=== PATIENT | female | born 1985 | race Hispanic/Latino ===

== ENCOUNTER 2018-01-23 21:01 | Emergency (ER) | payer MEDICAID ==
[2018-01-23 21:10] VITALS: RESP 16; O2SAT 98
--- NOTE | 2018-01-23 21:43 | ED PDOC ---
HPI: Seizure Time Seen by Provider: 01/23/18 21:11 Chief Complaint (Nursing): Seizure Chief Complaint (Provider): Seizure History Per: Family History/Exam Limitations: clinical condition Recent Seizure Activity Began: Just Before Arrival Length Of Seizures (Duration): Minutes (2-3) Quality Of Seizure: Generalized Associated Symptoms: denies: Incontinence Of Stool Additional Complaint(s): 33 y/o female with a PMHx of seizure disorder, bipolar disorder and chronic back pain presents to the ED for evaluation of a seizure. Seizure was witness by friend who states seizure was generalized tonic clonic and lasted approximately 2-3 minutes. According to friend, immediately after the patient then got up to go to the bathroom and while there started shaking again. Friend then helped her to lie down then patient began having more convulsive like activity. Friend states patient was able to tell her that she was having trouble breathing and note feeling well while have these convulsive movements. Friend reports patient had only one shot of alcohol this evening. Mother reports patient is complaint with medications. History was obtained from mother and friend due to patient's clinical condition. Friend denies urinary incontinence and drug use. PMD: In [facility] Past Medical History Reviewed: Historical Data, Nursing Documentation, Vital Signs Vital Signs: Last Vital Signs Temp 98.3 F 01/24/18 06:00 Pulse 70 01/24/18 06:00 Resp 16 01/23/18 22:40 BP 114/76 01/24/18 06:00 Pulse Ox 98 01/24/18 06:05 - Medical History PMH: Anxiety, Bipolar Disorder, Depression, Seizures Denies: HIV, Chronic Kidney Disease - Surgical History Surgical History: No Surg Hx - Family History Family History: States: Hypertension - Social History Current smoker - smoking cessation education provided: Yes Alcohol: Social Drugs: Denies - Immunization History Hx Tetanus Toxoid Vaccination: No - Home Medications Home Medications: Ambulatory Orders Medication Instructions Recorded QUEtiapine [Seroquel XR] 300 mg PO BID 09/18/14 Zolpidem Tartrate [Ambien] 10 mg PO HS 09/18/14 Alprazolam [Xanax] 2 mg PO BID 02/01/15 Levetiracetam [Keppra] 500 mg PO Q12 02/01/15 oxyCODONE/Acetaminophen [Percocet 1 tab PO BID 02/01/15 5/325 mg Tab] Cephalexin [Keflex] 500 mg PO BID #14 cap 04/26/15 Ibuprofen [Motrin] 600 mg PO Q6 PRN #20 tab 04/26/15 Oxycodone HCl/Acetaminophen 1 tab PO Q4 #10 tab 04/26/15 [Percocet 325 mg-5 mg] Naproxen 500 mg PO BID PRN #20 tab 11/03/15 Nitrofurantoin Macrocrystals 100 mg PO BID #13 cap 11/03/15 [Macrobid] - Allergies Allergies/Adverse Reactions: Allergies Allergy/AdvReac Type Severity Reaction Status Date / Time No Known Allergies Allergy Verified 01/24/18 23:18 Review of Systems Review Of Systems: ROS cannot be obtained secondary to pt's inabilty to answer questions. Physical Exam - Reviewed Nursing Documentation Reviewed: Yes Vital Signs Reviewed: Yes - Physical Exam Appears: Positive for: In Acute Distress (restless, not communicating. Patient seen intermittently having tremors but are short lived. ) Head Exam: Positive for: ATRAUMATIC, NORMOCEPHALIC Skin: Positive for: Warm, Dry Eye Exam: Positive for: Nystagmus (horizontal nystagmus with movement of the head. ). Negative for: PERRL (Pupils dilated and sluggishly reactive (7 mm)) ENT: Positive for: Other (Dry mucous membranes) Neck: Positive for: Painless ROM, Supple Cardiovascular/Chest: Positive for: Regular Rate, Rhythm, Tachycardia. Negative for: Murmur Respiratory: Positive for: Normal Breath Sounds. Negative for: Wheezing Gastrointestinal/Abdominal: Positive for: Soft. Negative for: Tenderness Back: Positive for: Normal Inspection. Negative for: Decreased ROM Extremity: Positive for: Normal ROM. Negative for: Deformity Lymphatic: Negative for: Adenopathy Neurologic/Psych: Positive for: Alert, Other (Looks towards voice, localizes pain, moves all extremities equally, brief 3-second long episodes of tremors and then stops to adjust body in bed, not seizure activity). Negative for: Motor/Sensory Deficits - Laboratory Results Result Diagrams: 01/23/18 21:59 01/23/18 21:59 - ECG O2 Sat by Pulse Oximetry: 98 (RA) Pulse Ox Interpretation: Normal Medical Decision Making Medical Decision Making: Time: 2148 Impression: Convulsive activity Differentials include but not limited to seizure, electrolyte abnormality, alcohol or drug intoxication, metabolic ensephalopahy and brain mass. Plan: -- VBG -- CT Head w/o contrast -- Alcohol Serum -- CMP -- HCG-Qualitative Series -- Magnesium -- Phosphorus -- Valproic Acid -- ED Urine -- ED Urine Dipstick -- CBC with differentials -- Glucose, POC -- Lorazepam 2 mg IVP -- Clinical Appeals Reviewer -- IV Insertion -- Glucose, Blood, POC -- Urinary Straight Catheter -- Friend reported to nurse that the patient had tried a friend's Adderall this afternoon. Mother requests crisis eval on patient due to depressed behavior recently and this episode of taking someone else's psychiatric meds. 22:[address] EXAM: CT Head Without Intravenous Contrast EXAM DATE/TIME: 01/23/2018 9:17 PM CLINICAL HISTORY: 33 years old, female; Signs and symptoms; Altered mental status/memory loss; Other: Poss seizure TECHNIQUE: Axial computed tomography images of the head/brain without intravenous contrast. All CT scans at this facility use at least one of these dose optimization techniques: automated exposure control; mA and/or kV adjustment per patient size (includes targeted exams where dose is matched to clinical indication); or iterative reconstruction. Coronal and sagittal reformatted images were created and reviewed. COMPARISON: CT - HEAD W/O CONTRAST 11/03/2015 9:46 PM FINDINGS: Brain: Normal. No hemorrhage. No significant white matter disease. No edema. Ventricles: Normal. No ventriculomegaly. Bones/joints: Normal. No acute fracture. Sinuses: Normal as visualized. No acute sinusitis. Mastoid air cells: Normal as visualized. No mastoid effusion. Soft tissues: Normal. IMPRESSION: No acute intracranial findings. 2300 Pt sleeping deeply in ER but arousable to loud stimuli but stays awake for only few seconds. Likely ativan effects. [address] Anderson. Pending arousal and crisis eval Scribe Attestation: Documented by Scout Benton acting as a scribe for Kristy Meadows MD. Provider Scribe Attestation: All medical record entries made by the Scribe were at my direction and personally dictated by me. I have reviewed the chart and agree that the record accurately reflects my personal performance of the history, physical exam, medical decision making, and the department course for this patient. I have also personally directed, reviewed, and agree with the discharge instructions and disposition. Disposition - Clinical Impression Clinical Impression: Anxiety - Disposition Disposition: Transfer of Care Disposition Time: 00:00 Condition: STABLE Patient Signed Over To: Ramakrishna Anderson
[2018-01-23 22:04] LABS: VENOUS BLOOD GAS BASE EXCESS 3.4 mmol/L (0.0-2.0); VENOUS BLOOD GAS PCO2 44 mmHg (40-60); VENOUS BLOOD GAS PO2 60 mm/Hg (30-55); VENOUS BLOOD PH 7.42 (7.32-7.43)
[2018-01-23 22:06] LABS: BASO % 0.4 % (0.0-2.0); EOS # 0.1 K/uL (0.0-0.7); EOS % 1.1 % (0.0-4.0); HEMOGLOBIN 11.9 g/dL (12.0-16.0); LYMPH # 2.7 K/uL (1.0-4.3); LYMPH % 33.3 % (20.0-40.0); MEAN CORPUSCULAR HGB CONC 34.7 g/dL (33.0-37.0); MEAN PLATELET VOLUME 9.2 fl (7.2-11.7); MONO # 0.5 K/uL (0.0-0.8); MONO % 5.7 % (0.0-10.0); NEUT # 4.8 K/uL (1.8-7.0); NEUT % 59.5 % (50.0-75.0); NRBC % 0.1 % (0.0-0.0); RBC 3.73 Mil/uL (3.80-5.20); RED CELL DISTRIBUTION WIDTH 12.8 % (11.5-14.5); WHITE BLOOD COUNT 8.1 K/uL (4.8-10.8)
[2018-01-23 22:15] LABS: BLOOD UREA NITROGEN 16 mg/dl (7-17); CALCIUM 8.8 mg/dL (8.4-10.2); GFR NON-AFRICAN AMERICAN > 60
[2018-01-23 22:22] LABS: ALB/GLOB RATIO 1.2 (1.0-2.1); ALBUMIN 3.9 g/dL (3.5-5.0); ALT/SGPT 17 U/L (9-52); AST/SGOT 25 U/L (14-36)
[2018-01-23 22:39] LABS: BARBITURATES, UR NEGATIVE (NEGATIVE); BENZODIAZEPINES, UR POSITIVE (NEGATIVE); OPIATES, UR NEGATIVE (NEGATIVE); PHENCYCLIDINE, UR NEGATIVE (NEGATIVE)
--- NOTE | 2018-01-24 00:18 | ED PDOC ---
- Laboratory Results Result Diagrams: 01/23/18 21:59 01/23/18 21:59 - ECG O2 Sat by Pulse Oximetry: 98 (RA) Medical Decision Making Medical Decision Makin:00 -Patient endorsed to provider by Dr. Meadows, pending crisis eval and reevaluation. 05:30 -Patient was evaluated by crisis, diagnosis anxiety. Patient is medically and psychiatrically clear for discharge home. Counseling was provided and all questions were answered regarding diagnosis. There is agreement to discharge plan. Return if symptoms persist or worsen. Disposition - Clinical Impression Clinical Impression: Anxiety - POA Present On Arrival: None - Disposition Disposition: Routine/Home Disposition Time: 05:30 Condition: STABLE Instructions: Anxiety, Adult (DC) Forms: [employer] (Portuguese)
[2018-01-24 07:26] VITALS: BP 114/76; PULSE 70; TEMP 98.3
--- NOTE | 2018-01-24 09:19 | CT ---
Date of service: 01/23/2018 PROCEDURE: CT HEAD WITHOUT CONTRAST. HISTORY: altered mental status COMPARISON: 11/03/2015. TECHNIQUE: Axial computed tomography images were obtained through the head/brain without intravenous contrast. Radiation dose: Total exam DLP = 1015.93 mGy-cm. This CT exam was performed using one or more of the following dose reduction techniques: Automated exposure control, adjustment of the mA and/or kV according to patient size, and/or use of iterative reconstruction technique. FINDINGS: HEMORRHAGE: No intracranial hemorrhage. BRAIN: Juárez-white matter differentiation is preserved. There is no mass, mass effect or abnormal extra-axial fluid collection. There is no territorial infarction. The midline sagittal structures are normal. VENTRICLES: The ventricles are normal in size, shape and configuration. CALVARIUM: Unremarkable. PARANASAL SINUSES: There is mild mucosal thickening in the sphenoid chamber. The remaining included paranasal sinuses are clear P MASTOID AIR CELLS: Predominantly clear. OTHER FINDINGS: None. IMPRESSION: No acute intracranial abnormality. A preliminary report was provided by [employer].
== END 2018-01-24 06:15 | disposition home or self-care (01) ==
LOC: H.ER 21:01
DX: F41.9 Anxiety disorder, unspecified (principal); F31.9 Bipolar disorder, unspecified; F17.200 Nicotine dependence, unspecified, uncomplicated; G40.909 Epilepsy, unspecified, not intractable, without status epilepticus
CPT/HCPCS: 70450; 80053; 80164; 80320; 80324; 80345; 80346; 80349; 80353; 80358; 80361; 81025; 82803; 82948; 83735; 83992; 84100; 85025; 96374; 99285; J2060

== ENCOUNTER 2018-01-24 23:16 | Emergency (ER) | payer MEDICAID ==
[2018-01-24 23:21] VITALS: O2SAT 100
[2018-01-25] MEDS ORDERED: Lacosamide 100 MG Tab PO STA (00:10)
[2018-01-25] MEDS ORDERED: Lacosamide 200mg/20ml 100 MG in Sodium Chloride 0.9% 100 ML IVPB STA (00:12)
[2018-01-25 01:06] LABS: VENOUS BLOOD GAS BASE EXCESS 4.2 mmol/L (0.0-2.0); VENOUS BLOOD GAS PCO2 44 mmHg (40-60); VENOUS BLOOD GAS PO2 68 mm/Hg (30-55); VENOUS BLOOD PH 7.43 (7.32-7.43)
[2018-01-25 01:09] LABS: BASO % 0.4 % (0.0-2.0); EOS # 0.1 K/uL (0.0-0.7); EOS % 1.6 % (0.0-4.0); HEMOGLOBIN 11.1 g/dL (12.0-16.0); LYMPH # 3.8 K/uL (1.0-4.3); MEAN CELL VOLUME 92.7 fl (81.0-99.0); MEAN CORPUSCULAR HEMOGLOBIN 31.2 pg (27.0-31.0); MEAN CORPUSCULAR HGB CONC 33.7 g/dL (33.0-37.0); MEAN PLATELET VOLUME 9.2 fl (7.2-11.7); MONO # 0.6 K/uL (0.0-0.8); MONO % 6.8 % (0.0-10.0); NEUT # 4.5 K/uL (1.8-7.0); NEUT % 49.2 % (50.0-75.0); NRBC % 0.1 % (0.0-0.0); RBC 3.57 Mil/uL (3.80-5.20); RED CELL DISTRIBUTION WIDTH 12.8 % (11.5-14.5); WHITE BLOOD COUNT 9.1 K/uL (4.8-10.8)
[2018-01-25] MEDS ORDERED: Oxycodone/Acetaminophen 5/325 mg Tab PO STA (01:20)
[2018-01-25] MEDS ORDERED: Alum-Mag Hydrox-Simethicone Susp (30 mL) PO ONE (01:20)
[2018-01-25 01:23] LABS: BLOOD UREA NITROGEN 15 mg/dl (7-17); CALCIUM 8.7 mg/dL (8.4-10.2); GFR NON-AFRICAN AMERICAN > 60
[2018-01-25] MEDS ORDERED: Alum-Mag Hydrox-Simethicone Susp (30 mL) ONE (01:28)
[2018-01-25] MEDS ORDERED: Oxycodone/Acetaminophen 5/325 mg Tab ONE (01:28)
--- NOTE | 2018-01-25 02:28 | ED PDOC ---
HPI: Seizure Time Seen by Provider: 01/24/18 23:30 Chief Complaint (Nursing): Seizure Chief Complaint (Provider): Seizure History Per: Patient History/Exam Limitations: no limitations Recent Seizure Activity Began: Just Before Arrival (and yesterday) Number Of Seizures: Multiple (x2) Additional Complaint(s): Eusebia Feliciano is a 33 year old female, with a past medical history of depression and seizure disorder currently on Depakote 2,000mg as well as Gabapentin, Effexor and Percocet for chronic pain, who presents to the emergency department after she had a witnessed seizure yesterday and another today after leaving her grandmother's house. Seizure was witnessed by mother. Patient states she was able to lower herself to the ground and that she fell onto her buttock and rolled back. She did strike her head lightly against the ground after which her mother called EMS. On arrival patient states she is drowsy but coming out of it. Of note, patient is in a medical marijuana program. No further medical complaints. PMD: None provided. Past Medical History Reviewed: Historical Data, Nursing Documentation, Vital Signs Vital Signs: Last Vital Signs Temp 98.1 F 01/24/18 23:18 Pulse 72 01/24/18 23:18 Resp 17 01/24/18 23:18 BP 112/70 01/24/18 23:18 Pulse Ox 100 01/25/18 02:53 - Medical History PMH: Anxiety, Bipolar Disorder, Depression, Seizures Denies: Diabetes, Hepatitis, HIV, HTN, Chronic Kidney Disease, Sexually Transmitted Disease - Surgical History Surgical History: No Surg Hx - Family History Family History: States: Unknown Family Hx, Hypertension - Immunization History Hx Tetanus Toxoid Vaccination: No - Home Medications Home Medications: Ambulatory Orders Medication Instructions Recorded QUEtiapine [Seroquel XR] 300 mg PO BID 09/18/14 Zolpidem Tartrate [Ambien] 10 mg PO HS 09/18/14 Alprazolam [Xanax] 2 mg PO BID 02/01/15 Levetiracetam [Keppra] 500 mg PO Q12 02/01/15 oxyCODONE/Acetaminophen [Percocet 1 tab PO BID 02/01/15 5/325 mg Tab] Cephalexin [Keflex] 500 mg PO BID #14 cap 04/26/15 Ibuprofen [Motrin] 600 mg PO Q6 PRN #20 tab 04/26/15 Oxycodone HCl/Acetaminophen 1 tab PO Q4 #10 tab 04/26/15 [Percocet 325 mg-5 mg] Naproxen 500 mg PO BID PRN #20 tab 11/03/15 Nitrofurantoin Macrocrystals 100 mg PO BID #13 cap 11/03/15 [Macrobid] Lacosamide [Vimpat] 100 mg PO BID #60 tab 01/25/18 Ondansetron ODT [Zofran ODT] 4 mg PO Q8 PRN #12 odt 01/25/18 - Allergies Allergies/Adverse Reactions: Allergies Allergy/AdvReac Type Severity Reaction Status Date / Time No Known Allergies Allergy Verified 01/24/18 23:18 Review of Systems ROS Statement: Except As Marked, All Systems Reviewed And Found Negative Neurological: Positive for: Seizures (x2), Other (drowsy) Physical Exam - Reviewed Nursing Documentation Reviewed: Yes Vital Signs Reviewed: Yes - Physical Exam Appears: Positive for: No Acute Distress Head Exam: Positive for: ATRAUMATIC, NORMAL INSPECTION, NORMOCEPHALIC Skin: Positive for: Normal Color, Warm, Dry Eye Exam: Positive for: Normal appearance, EOMI, PERRL Neck: Positive for: Painless ROM, Supple Cardiovascular/Chest: Positive for: Regular Rate, Rhythm. Negative for: Murmur Respiratory: Positive for: Normal Breath Sounds. Negative for: Respiratory Distress Gastrointestinal/Abdominal: Positive for: Normal Exam, Soft. Negative for: Tenderness Back: Positive for: Normal Inspection. Negative for: Vertebral Tenderness Extremity: Positive for: Normal ROM (upper and lower extremities). Negative for : Deformity, Swelling Neurologic/Psych: Positive for: Alert, block breaker II-XII (intact), Oriented (x3), Cerebellar Tests (normal), Gait (steady). Negative for: Motor/Sensory Deficits , Aphasia, Facial Droop - Laboratory Results Result Diagrams: 01/25/18 01:01 01/25/18 01:01 - ECG O2 Sat by Pulse Oximetry: 100 (RA) Pulse Ox Interpretation: Normal Medical Decision Making Medical Decision Making: Time: 23:30 A/P: 33 y/o female with history of seizure disorder presenting with seizure. Based on results of yesterdays labs, Depakote level is less than expected for dosage. Initial Plan: --VBG Shock Panel --BMP --CPK --Valproic acid --CBC w/ differential --Maalox Plus 30 ml PO --Percocet 5/325mg tab 1 tab PO --Vimpat 200mg/20ml 100 mg Sodium Chloride 0.9% 100 ml IVPB --Zofran ODT 8 mg PO --Reevaluation 01:10 -Discussed case with Dr. Salmeron who recommends adding Vimpat to medication to control seizure and recommends follow up as an outpatient. Will monitor patient in ED for further seizures. 04:00 -Patient had no seizure activity within the ER. She was seen walking around without difficulty. Advised patient to start vimpat and followup with neurology. Well appearing with normal vitals upon discharge. ----- Scribe Attestation: Documented by Juan Mancia, acting as a scribe for Efe Bhatti MD. Provider Scribe Attestation: All medical record entries made by the Scribe were at my direction and personally dictated by me. I have reviewed the chart and agree that the record accurately reflects my personal performance of the history, physical exam, medical decision making, and the department course for this patient. I have also personally directed, reviewed, and agree with the discharge instructions and disposition. Disposition - Clinical Impression Clinical Impression: Simple seizure - Disposition Referrals: SHAWANDA LANZA [Other] Lia MORALEZ,Aiden Cortez MD [Medical Doctor] - Richie Salmeron MD [Medical Doctor] - Disposition: Routine/Home Disposition Time: 04:00 Condition: IMPROVED Prescriptions: Lacosamide [Vimpat] 100 mg PO BID #60 tab Ondansetron ODT [Zofran ODT] 4 mg PO Q8 PRN #12 odt PRN Reason: Nausea/Vomiting Instructions: Seizures, Adult (DC) Forms: [employer] (Maori)
[2018-01-25 04:46] VITALS: BP 122/74; PULSE 78; RESP 18; TEMP 98
== END 2018-01-25 03:50 | disposition home or self-care (01) ==
LOC: H.ER 23:16
DX: G40.909 Epilepsy, unspecified, not intractable, without status epilepticus (principal); F31.9 Bipolar disorder, unspecified; F41.9 Anxiety disorder, unspecified; G89.29 Other chronic pain

== ENCOUNTER 2018-09-19 11:57 | Emergency (ER) | payer MEDICAID ==
[2018-09-19 12:05] VITALS: BP 118/70; PULSE 72; RESP 20; TEMP 98; BMI 31.6
[2018-09-19 12:07] VITALS: O2SAT 98
[2018-09-19] MEDS ORDERED: Sodium Chloride 0.9% 1,000 ML IV STA ×2 (12:51→16:48)
[2018-09-19] MEDS ORDERED: Alum-Mag Hydrox-Simethicone Susp (30 mL) PO STA (12:54)
[2018-09-19] MEDS ORDERED: Alum-Mag Hydrox-Simethicone Susp (30 mL) ONE (13:58)
[2018-09-19 14:40] LABS: BASO % 0.4 % (0.0-2.0); EOS % 0.4 % (0.0-4.0); LYMPH # 2.5 K/uL (1.0-4.3); MEAN CELL VOLUME 87.1 fl (81.0-99.0); MEAN CORPUSCULAR HEMOGLOBIN 29.4 pg (27.0-31.0); MEAN CORPUSCULAR HGB CONC 33.8 g/dL (33.0-37.0); MEAN PLATELET VOLUME 9.2 fl (7.2-11.7); MONO # 0.6 K/uL (0.0-0.8); MONO % 9.1 % (0.0-10.0); NEUT # 3.6 K/uL (1.8-7.0); NEUT % 53.1 % (50.0-75.0); NRBC % 0.1 % (0.0-0.0); RBC 4.58 Mil/uL (3.80-5.20); RED CELL DISTRIBUTION WIDTH 13.5 % (11.5-14.5); WHITE BLOOD COUNT 6.8 K/uL (4.8-10.8)
[2018-09-19 14:42] LABS: HEMOGLOBIN 13.5 g/dL (12.0-16.0)
[2018-09-19 14:52] LABS: BLOOD UREA NITROGEN 11 mg/dl (7-17)
[2018-09-19 14:53] LABS: ALBUMIN 5.1 g/dL (3.5-5.0); CALCIUM 9.6 mg/dL (8.4-10.2); GFR NON-AFRICAN AMERICAN > 60
[2018-09-19 14:54] LABS: ALB/GLOB RATIO 1.5 (1.0-2.1); ALT/SGPT 14 U/L (9-52); AST/SGOT 15 U/L (14-36)
--- NOTE | 2018-09-19 16:51 | ED PDOC ---
HPI: Abdomen Time Seen by Provider: 09/19/18 12:15 Chief Complaint (Nursing): GI Problem Chief Complaint (Provider): N/v/D, epigastric pain History Per: Patient History/Exam Limitations: no limitations Onset/Duration Of Symptoms: Days (2) Outside of [place] travel?: No Alleviating Factors: None Last Bowel Movement: Today (Watery) Additional Complaint(s): 33 yo female presents for evaluation of N/V/D for 2 days. No fever/chills. Pt reports epigastric pain. No blood in vomiting. Pt denies similar in the past. PT concerned because she in unable to take her medication of seizure disorder. Past Medical History Reviewed: Historical Data, Nursing Documentation, Vital Signs Vital Signs: Last Vital Signs Temp 98 F 09/19/18 12:05 Pulse 72 09/19/18 12:05 Resp 20 09/19/18 12:05 BP 118/70 09/19/18 12:05 Pulse Ox 98 09/19/18 12:05 Primary Care Provider: FAMILY PROVIDER,NO - Medical History PMH: Anxiety, Bipolar Disorder, Depression, Seizures Denies: Diabetes, Hepatitis, HIV, HTN, Chronic Kidney Disease, Sexually Transmitted Disease - Family History Family History: States: Unknown Family Hx, Hypertension - Living Arrangements Living Arrangements: With Family - Social History Current smoker - smoking cessation education provided: No - Immunization History Hx Tetanus Toxoid Vaccination: No - Home Medications Home Medications: Ambulatory Orders Medication Instructions Recorded QUEtiapine [Seroquel XR] 300 mg PO BID 09/18/14 Zolpidem Tartrate [Ambien] 10 mg PO HS 09/18/14 Alprazolam [Xanax] 2 mg PO BID 02/01/15 Levetiracetam [Keppra] 500 mg PO Q12 02/01/15 oxyCODONE/Acetaminophen [Percocet 1 tab PO BID 02/01/15 5/325 mg Tab] Cephalexin [Keflex] 500 mg PO BID #14 cap 04/26/15 Ibuprofen [Motrin] 600 mg PO Q6 PRN #20 tab 04/26/15 Oxycodone HCl/Acetaminophen 1 tab PO Q4 #10 tab 04/26/15 [Percocet 325 mg-5 mg] Naproxen 500 mg PO BID PRN #20 tab 11/03/15 Nitrofurantoin Macrocrystals 100 mg PO BID #13 cap 11/03/15 [Macrobid] Lacosamide [Vimpat] 100 mg PO BID #60 tab 01/25/18 Ondansetron ODT [Zofran ODT] 4 mg PO Q8 PRN #12 odt 01/25/18 Ondansetron ODT [Zofran ODT] 4 mg PO Q6H #10 odt 09/19/18 - Allergies Allergies/Adverse Reactions: Allergies Allergy/AdvReac Type Severity Reaction Status Date / Time No Known Allergies Allergy Verified 01/24/18 23:18 Review of Systems ROS Statement: Except As Marked, All Systems Reviewed And Found Negative Constitutional: Negative for: Fever, Chills Cardiovascular: Negative for: Chest Pain, Palpitations Respiratory: Negative for: Cough, Shortness of Breath Gastrointestinal: Positive for: Nausea, Vomiting, Abdominal Pain, Diarrhea Genitourinary Female: Negative for: Dysuria, Frequency, Vaginal Discharge, Vaginal Bleeding, Pelvic Pain Physical Exam - Reviewed Nursing Documentation Reviewed: Yes Vital Signs Reviewed: Yes - Physical Exam Appears: Positive for: Well, Non-toxic, No Acute Distress Head Exam: Positive for: ATRAUMATIC, NORMAL INSPECTION, NORMOCEPHALIC Skin: Positive for: Normal Color, Warm, DRY Eye Exam: Positive for: Normal appearance ENT: Positive for: Normal ENT Inspection Neck: Positive for: Normal, Painless ROM Cardiovascular/Chest: Positive for: Regular Rate, Rhythm Respiratory: Positive for: Normal Breath Sounds. Negative for: Accessory Muscle Use, Wheezing, Respiratory Distress Gastrointestinal/Abdominal: Positive for: Normal Exam, Soft, Tenderness (Epigastric ) Back: Positive for: Normal Inspection Extremity: Positive for: Normal ROM Neurological/Psych: Positive for: Awake, Alert, Normal Tone - Laboratory Results Result Diagrams: 09/19/18 14:15 09/19/18 14:15 Lab Results: Total Bilirubin 0.8 mg/dl (0.2-1.3) 09/19/18 14:15 AST 15 U/L (14-36) 09/19/18 14:15 ALT 14 U/L (9-52) 09/19/18 14:15 Alkaline Phosphatase 51 U/L (38-126) 09/19/18 14:15 Total Protein 8.4 G/DL (6.3-8.2) H 09/19/18 14:15 Albumin 5.1 g/dL (3.5-5.0) H D 09/19/18 14:15 Globulin 3.3 gm/dL (2.2-3.9) 09/19/18 14:15 Albumin/Globulin Ratio 1.5 (1.0-2.1) 09/19/18 14:15 - ECG O2 Sat by Pulse Oximetry: 98 Medical Decision Making Medical Decision Making: Pt reports feeling better on re-evaluation at 1645. Pt reports abdominal cramping. On exam tenderness more RUQ. US ordered with additional liter of NS. 1840 - Pt reports feeling much better./ US normal. Disposition - Clinical Impression Clinical Impression: Gastroenteritis, Anxiety - Patient ED Disposition Is Patient to be Admitted: No Counseled Patient/Family Regarding: Diagnosis, Need For Followup - Disposition Disposition: Routine/Home Disposition Time: 18:49 Condition: STABLE Prescriptions: Ondansetron ODT [Zofran ODT] 4 mg PO Q6H #10 odt Instructions: Gastritis (DC) Forms: [employer] (Korean)
--- NOTE | 2018-09-19 17:43 | US ---
Date of service: 09/19/2018 HISTORY: epigastric pain, vomiting COMPARISON: None. TECHNIQUE: Sonographic evaluation of the right upper quadrant of the abdomen. FINDINGS: LIVER: Measures 17.9 cm in length. Normal echogenicity of the liver parenchyma. No mass. No intrahepatic bile duct dilatation. GALLBLADDER: There are no gallstones, wall thickening or pericholecystic fluid. The sonographic Trujillo's sign is negative. COMMON BILE DUCT: Measures 3.5 mm. No stones. No dilatation. PANCREAS: Unremarkable as visualized. No mass. No ductal dilatation. RIGHT KIDNEY: Measures 12.3 cm in length. Normal echogenicity. No calculus, mass, or hydronephrosis. AORTA: No aneurysmal dilatation. IVC: Unremarkable. OTHER FINDINGS: None . IMPRESSION: No evidence for cholelithiasis or biliary dilatation. No acute findings.
== END 2018-09-19 19:22 | disposition home or self-care (01) ==
LOC: H.ER 11:57
DX: K52.9 Noninfective gastroenteritis and colitis, unspecified (principal); F41.9 Anxiety disorder, unspecified; F31.9 Bipolar disorder, unspecified
CPT/HCPCS: 76705; 80053; 80164; 81025; 83690; 85025; 96374; 96375; 99283; J2405; J2765; J7030